=== PATIENT | male | born 1950 | race Two or more races ===

== ENCOUNTER 2018-09-07 10:17 | Emergency (ER) | payer OTHER ==
[~2018-09-07] VITALS: Ht 167.6 cm; Wt 86.2 kg
[2018-09-07] MEDS ORDERED: ATORVASTATIN CA10 MG (10:39)
[2018-09-07] MEDS ORDERED: RANITIDINE HCL75 MG (10:40)
== END 2018-09-07 13:48 | disposition home or self-care (01) ==
LOC: ER 10:17
DX: M54.2 Cervicalgia (principal); M62.838 Other muscle spasm